=== PATIENT | female | born 1990 | race Asian ===

== ENCOUNTER 2020-03-19 11:44 | Emergency (ER) | payer OTHER ==
[~2020-03-19] VITALS: Ht 157.5 cm; Wt 52.2 kg
--- NOTE | 2020-03-19 13:21 | PHYS DOC ---
General Adult EDM: Chief Complaint: COUGH HPI: HPI: Patient is a 29 year old female who presents with works for [employer] where there is been other people positive for COVID-19. She states for the last 3 weeks she has had a dry cough, shortness of breath. She states she is beginning to have upper back and chest pain especially with coughing. She states 3 weeks ago she ran a fever and had chills but she does not think she any longer has been running a fever. She denies nausea, vomiting, abdominal pain, diarrhea, fatigue, headache, dizziness, loc. Review of Systems: Review of Systems: Respiratory: cough or shortness of breath. [] Cardiovascular: chest pain or denies edema. [] Musculoskeletal: back pain or denies joint pain. [] Heart Score: HEART Score for Chest Pain: HEART Score for Chest Pain Response (Comments) Value History Slighlty/Non-Suspicious 0 ECG Normal 0 Age < 45 0 Risk Factors No Risk Factors 0 Troponin < Normal Limit 0 Total 0 Risk Factors: Risk Factors: DM, Current or recent (<one month) smoker, HTN, HLP, family history of CAD, obesity. Risk Scores: Score 0 - 3: 2.5% MACE over next 6 weeks - Discharge Home Score 4 - 6: 20.3% MACE over next 6 weeks - Admit for Clinical Observation Score 7 - 10: 72.7% MACE over next 6 weeks - Early Invasive Strategies Physical Exam: PE: Constitutional: Well developed, well nourished, no acute distress, non-toxic appearance. [] HENT: Normocephalic, atraumatic, bilateral external ears normal, oropharynx moist, no oral exudates, nose normal. [] Eyes: PERRLA, EOMI, conjunctiva normal, no discharge. [] Neck: Normal range of motion, no tenderness, supple, no stridor. [] Cardiovascular:Heart rate regular rhythm, no murmur [] Lungs & Thorax: Bilateral upper breath sounds clear and lower diminished to auscultation [] Abdomen: Bowel sounds normal, soft, no tenderness, no masses, no pulsatile masses. [] Skin: Warm, dry, no erythema, no rash. [] Back: No tenderness, no CVA tenderness. [] Extremities: No tenderness, no cyanosis, no clubbing, ROM intact, no edema. [] Neurologic: Alert and oriented X 3, normal motor function, normal sensory function, no focal deficits noted. [] Psychologic: Affect normal, judgement normal, mood normal. [] EKG: EKG: [] Radiology/Procedures: Radiology/Procedures: [] Impression: [facility] [address] [place] [address] IMAGING REPORT Signed PATIENT: NACHO HIDALGO ACCOUNT: [id number] : 1990 LOCATION: ER AGE: 29 SEX: F EXAM STATUS: REG ER ORD. PHYSICIAN: SUSHMA MARES APRN REASON: COUGH RM 21 PROCEDURE: PORTABLE CHEST 1V EXAM: Chest, single view. HISTORY: Cough. COMPARISON: None. FINDINGS: A frontal view of the chest obtained. There is no infiltrate, pleural effusion or pneumothorax. The heart is normal in size. IMPRESSION: No acute pulmonary finding. Electronically signed by: Dasha Stack MD (03/19/2020 2:27 PM) [id number] DICTATED and SIGNED BY: DASHA STACK MD DATE: 03/19/20 142 Course & Med Decision Making: Course & Med Decision Making Pertinent Labs and Imaging studies reviewed. (See chart for details) Alert and oriented. Ambulatory with steady gait. Skin pink warm and dry. Vital signs within normal limits. Afebrile. Lungs are clear in upper lobes but diminished in lower lobes. Speaks in full clear sentences. Patient states she is eating and drinking appropriately. Patient states she has no past medical history and takes no medications. She states she has not been taking any medications for her symptoms. She denies pain at this time. Patient speaks [place] and a diplomatic interpreter is used. [] Dragon Disclaimer: Dragon Disclaimer: This electronic medical record was generated, in whole or in part, using a voice recognition dictation system. Departure Departure Impression: Primary Impression: Cough Additional Impression: UTI (urinary tract infection) Qualified Codes: N39.0 - Urinary tract infection, site not specified Disposition: HOME, SELF-CARE Condition: STABLE Referrals: NO PCP (PCP) Patient Instructions: Cough, Adult, Urinary Tract Infection Additional Instructions: Stay home and quaratine for the next 14 days. Take medication as prescribed for your urinary tract infection. Take Tylenol for pain and fever. If you develop severe Shortness of breath or severe chest pain return to the Emergency room. Scripts Albuterol Sulfate (Proair Hfa) 8.5 Gm Hfa.aer.ad 1 PUFF INH PRN Q6HRS PRN for SHORTNESS OF BREATH, #1 INHALER Prov: SUSHMA MARES PEER EDUCATOR //20 Acetaminophen (ACETAMINOPHEN) 500 Mg Tablet 1-2 TAB PO PRN Q6HRS PRN for pain or fever for 15 Days, #60 TAB 0 Refills Prov: SUSHMA MARES PEER EDUCATOR //20 Cephalexin (KEFLEX) 500 Mg Capsule 1 CAP PO BID for 7 Days, #14 CAP 0 Refills Prov: SUSHMA MARES PEER EDUCATOR //20 Benzonatate (TESSALON PERLE) 100 Mg Capsule 1 CAP PO TID, #30 CAP Prov: SUSHMA MARES PEER EDUCATOR 20 BAFSUSHMA TAYLOR PEER EDUCATOR March 19, 2020 13:21
[2020-03-19 13:33] LABS: BASO % 1 % (0-3); EOS # 0.1 x10^3/uL (0.0-0.7); EOS % 2 % (0-3); HEMATOCRIT 40.1 % (36.0-47.0); HEMOGLOBIN 13.1 g/dL (12.0-15.5); LYMPH # 1.9 x10^3/uL (1.0-4.8); LYMPH % 31 % (24-48); MEAN CORPUSCULAR HEMOGLOBIN 28 pg (25-35); MEAN CORPUSCULAR HGB CONC 33 g/dL (31-37); MEAN CORPUSCULAR VOLUME 84 fL (79-100); MONO # 0.5 x10^3/uL (0.0-1.1); MONO % 8 % (0-9); NEUT # 3.8 x10^3/uL (1.8-7.7); NEUT % 59 % (31-73); PLATELET COUNT 299 x10^3/uL (140-400); RED BLOOD COUNT 4.76 x10^6/uL (3.50-5.40); RED CELL DISTRIBUTION WIDTH 15.8 % (11.5-14.5); WHITE BLOOD COUNT 6.4 x10^3/uL (4.0-11.0)
[2020-03-19 13:40] LABS: BILIRUBIN,URINE NEGATIVE (NEG); CLARITY,URINE CLEAR; COLOR,URINE YELLOW; NITRITE,URINE NEGATIVE (NEG); PH,URINE 6.5 (<5.0-8.0); PROTEIN,URINE NEGATIVE (NEG-TRACE); UROBILINOGEN,URINE 0.2 mg/dL (0.2 mg/dL)
[2020-03-19 13:49] LABS: CALCIUM 8.9 mg/dL (8.5-10.1); CREATININE 0.6 mg/dL (0.6-1.0); GFR 118.2; POTASSIUM 4.3 mmol/L (3.5-5.1)
[2020-03-19 14:06] LABS: ALBUMIN 3.9 g/dL (3.4-5.0); TOTAL BILIRUBIN 0.4 mg/dL (0.2-1.0); TOTAL PROTEIN 7.9 g/dL (6.4-8.2)
[2020-03-19 14:15] LABS: BACTERIA,URINE FEW /HPF (0-FEW); RBC,URINE 0 /HPF (0-2); SQUAMOUS EPITHELIAL CELL,UR MOD /LPF
--- NOTE | 2020-03-19 14:30 | RAD ---
EXAM: Chest, single view. HISTORY: Cough. COMPARISON: None. FINDINGS: A frontal view of the chest obtained. There is no infiltrate, pleural effusion or pneumothorax. The heart is normal in size. IMPRESSION: No acute pulmonary finding. Electronically signed by: Dasha Hill MD (03/19/2020 2:27 PM) [id number]
[2020-03-19] MEDS ORDERED: CEPH-264 PO (14:47)
[2020-03-19] MEDS ORDERED: BENZ100C PO (14:47)
[2020-03-19] MEDS ORDERED: ACET500T68 PO (14:48)
[2020-03-19] MEDS ORDERED: ALBU2.5V8 INH (14:48)
--- NOTE | 2020-03-19 15:21 | EKG ---
[facility] [address] [place] [address] Test Date: 2020-03-19 Test Time: 14:54:49 Pat Name: NACHO HIDALGO Department: Room: Gender: F [employer] Supervisor: : 1990 Requested By: SUSHMA MARES Order Number: [id number] Reading MD: Bassem Lane MD Measurements Intervals [place] Rate: 70 P: 44 [place]: 160 QRS: 32 QRSD: 80 T: 32 QT: 404 QTc: 439 Interpretive Statements SINUS RHYTHM Electronically Signed On 03-21-2020 11:31:[address] MD
[2020-03-19 15:30] VITALS: BP 101/57
== END 2020-03-19 16:18 | disposition home or self-care (01) ==
LOC: ER 11:44
DX: N39.0 Urinary tract infection, site not specified (principal); R05 Cough; R06.02 Shortness of breath; R07.89 Other chest pain
CPT/HCPCS: 36415; 71045; 80053; 81001; 81025; 84484; 85025; 87086; 93005; 99285